=== PATIENT | female | born 1955 | race Caucasian/White ===

== ENCOUNTER 2018-01-05 21:04 | Emergency (ER) | payer MEDICAID ==
[~2018-01-05] VITALS: Ht 157.5 cm; Wt 87.9 kg
[2018-01-05 21:06] VITALS: BP 142/78
[2018-01-05] MEDS ORDERED: OXYcodone IR 5MG TABLET ONE (22:39)
[2018-01-05] MEDS ORDERED: OXYcodone IR 5MG TABLET PO ONE (23:00)
== END 2018-01-05 22:57 | disposition home or self-care (01) ==
LOC: ED 22:49
DX: S52.572A Other intraarticular fracture of lower end of left radius, initial encounter for closed fracture (principal); E11.9 Type 2 diabetes mellitus without complications; Z90.49 Acquired absence of other specified parts of digestive tract; W19.XXXA Unspecified fall, initial encounter; Y93.89 Activity, other specified; Y99.8 Other external cause status; Y92.009 Unspecified place in unspecified non-institutional (private) residence as the place of occurrence of the external cause
CPT/HCPCS: 29125; 99284